=== PATIENT | male | born 1960 | race Caucasian/White ===

== ENCOUNTER 2020-08-31 13:22 | Inpatient (IN) | payer OTHER ==
[2020-08-31 14:47] VITALS: BMI 25.2
[2020-08-31] MEDS ORDERED: IBUPROFEN 400 MG TABLET (FP) PO PRN (15:53)
[2020-08-31] MEDS ORDERED: MENTHOL/PHENOL 1 EACH UD MM PRN (15:53)
[2020-08-31] MEDS ORDERED: METHADONE HCL 10 MG TABLET (FOR DETOX USE ONLY) PO ONE (15:53)
[2020-08-31] MEDS ORDERED: ONDANSETRON *ODT* 4 MG TABLET SL PRN (15:53)
[2020-08-31] MEDS ORDERED: cloNIDine HCL 0.1 MG TABLET PO PRN (15:53)
[2020-08-31] MEDS ORDERED: MAGNESIUM HYDROX 2400MG/30ML ORAL SUSPENSION 30 ML CUP PO PRN (15:53)
[2020-08-31] MEDS ORDERED: ACETAMINOPHEN 325 MG TABLET (FP) PO PRN ×2 (15:53)
[2020-08-31] MEDS ORDERED: BISMUTH SUBSALICYLATE 524 MG/30 ML UD PO PRN (15:53)
[2020-08-31] MEDS ORDERED: MAGNESIUM CITRATE 300 ML BOTTLE PO PRN (15:53)
[2020-08-31] MEDS ORDERED: MAG HYDROX/AL HYDROX/SIMETH 30 ML UNIT-DOSE CUP PO PRN (15:53)
[2020-08-31] MEDS: MELATONIN 5 MG TABLETS PO SCH (22:09)
[2020-08-31] MEDS: THIAMINE HCL 100 MG TABLET (FP) PO SCH (22:09)
[2020-08-31] MEDS: METHOCARBAMOL 500 MG TABLET PO PRN (22:10)
[2020-09-01] MEDS ORDERED: ALBUTEROL SO4 2.5/IPRATROPIUM 0.5 INH SOL 3 ML VIAL.NEB. NEB PRN ×3 (00:18→10:32)
[2020-09-01] MEDS: ALBUTEROL SO4 HFA INHALER IH PRN (01:11)
[2020-09-01] MEDS ORDERED: METHADONE HCL 10 MG TABLET (FOR DETOX USE ONLY) ONE (09:04)
[2020-09-01] MEDS ORDERED: METHADONE HCL 5 MG TABLET (FOR DETOX USE ONLY) ONE (09:04)
[2020-09-01 10:00] LABS: HEMOGLOBIN 14.2 GM/dL (11.7-16.9); MCH 30.7 pg (25.7-33.7); MCHC 33.1 g/dl (32.0-35.9); MEAN CELL VOLUME 92.8 fl (80-96); MEAN PLT VOLUME 11.7 fl (7.5-11.1); PLATELET COUNT 197 K/MM3 (134-434); RBC 4.64 M/mm3 (4.00-5.60); RDW 14.2 % (11.9-15.9); WHITE BLOOD COUNT 8.9 K/mm3 (4.0-10.0)
[2020-09-01] MEDS ORDERED: METHADONE (DETOX) 20 MG, METHADONE (DETOX) 5 MG PO ONE (10:00)
[2020-09-01] MEDS: METHOCARBAMOL 500 MG TABLET PO PRN (10:07)
[2020-09-01] MEDS: PRENATAL VITAMINS W/ FOLIC ACID TABLET (FP) PO SCH (10:07)
[2020-09-01] MEDS ORDERED: TAMSULOSIN HCL 0.4 MG CAP PO ONE (10:14)
[2020-09-01 10:17] LABS: ALBUMIN 3.9 g/dl (3.4-5.0); CALCIUM 9.5 mg/dL (8.5-10.1)
[2020-09-01 10:18] LABS: BLOOD UREA NITROGEN 9.5 mg/dL (7-18)
[2020-09-01 10:20] LABS: CREATININE 0.8 mg/dL (0.55-1.3)
[2020-09-01 10:22] LABS: BILIRUBIN,TOTAL 0.4 mg/dL (0.2-1)
[2020-09-01] MEDS: amLODIPine BESYLATE 5 MG TABLET (FP) PO SCH (11:39)
[2020-09-01] MEDS: LISINOPRIL 10 MG TABLET PO SCH (11:39)
[2020-09-01] MEDS: GABAPENTIN 100 MG CAPSULE PO SCH (11:39)
[2020-09-01] MEDS: PARoxetine HCL 20 MG TABLET PO SCH (12:06)
[2020-09-01] MEDS: THIAMINE HCL 100 MG TABLET (FP) PO SCH (22:17)
[2020-09-01] MEDS: MELATONIN 5 MG TABLETS PO SCH (22:17)
[2020-09-01] MEDS: ATORVASTATIN CA 20 MG TABLET (FP) PO SCH (22:17)
[2020-09-01] MEDS: SUVOREXANT 10 MG TABLET PO PRN (22:17)
[2020-09-02] MEDS ORDERED: METHADONE HCL 10 MG TABLET (FOR DETOX USE ONLY) PO ONE (10:00)
[2020-09-02] MEDS: LISINOPRIL 10 MG TABLET PO SCH (10:08)
[2020-09-02] MEDS: PARoxetine HCL 20 MG TABLET PO SCH (10:08)
[2020-09-02] MEDS: TAMSULOSIN HCL 0.4 MG CAP PO SCH (10:08)
[2020-09-02] MEDS: amLODIPine BESYLATE 5 MG TABLET (FP) PO SCH (10:08)
[2020-09-02] MEDS: PRENATAL VITAMINS W/ FOLIC ACID TABLET (FP) PO SCH (10:08)
[2020-09-02] MEDS: GABAPENTIN 100 MG CAPSULE PO SCH (10:08)
[2020-09-02] MEDS ORDERED: LOPERAMIDE HCL 2 MG CAPSULE PO ONE (13:27)
[2020-09-02] MEDS ORDERED: hydrOXYzine PAMOATE 50 MG CAPSULE (FP) PO PRN (13:30)
[2020-09-02] MEDS: THIAMINE HCL 100 MG TABLET (FP) PO SCH (22:01)
[2020-09-02] MEDS: ATORVASTATIN CA 20 MG TABLET (FP) PO SCH (22:01)
[2020-09-02] MEDS: MELATONIN 5 MG TABLETS PO SCH (22:02)
[2020-09-02] MEDS: SUVOREXANT 10 MG TABLET PO PRN (22:04)
[2020-09-03 08:06] LABS: SARS-CoV-2 NAA Not Detected (Not Detected)
[2020-09-03] MEDS ORDERED: METHADONE HCL 10 MG TABLET (FOR DETOX USE ONLY) ONE (08:53)
[2020-09-03] MEDS ORDERED: METHADONE HCL 5 MG TABLET (FOR DETOX USE ONLY) ONE (08:53)
[2020-09-03] MEDS ORDERED: METHADONE (DETOX) 10 MG, METHADONE (DETOX) 5 MG PO ONE (10:00)
[2020-09-03] MEDS: GABAPENTIN 100 MG CAPSULE PO SCH (10:08)
[2020-09-03] MEDS: amLODIPine BESYLATE 5 MG TABLET (FP) PO SCH (10:08)
[2020-09-03] MEDS: PARoxetine HCL 20 MG TABLET PO SCH (10:08)
[2020-09-03] MEDS: PRENATAL VITAMINS W/ FOLIC ACID TABLET (FP) PO SCH (10:08)
[2020-09-03] MEDS: LISINOPRIL 10 MG TABLET PO SCH (10:08)
[2020-09-03] MEDS: TAMSULOSIN HCL 0.4 MG CAP PO SCH (10:09)
[2020-09-03] MEDS ORDERED: SUVOREXANT 15 MG TABLET PO PRN (22:00)
[2020-09-03] MEDS: ATORVASTATIN CA 20 MG TABLET (FP) PO SCH (22:12)
[2020-09-03] MEDS: ALBUTEROL SO4 HFA INHALER IH PRN (22:12)
[2020-09-03] MEDS: THIAMINE HCL 100 MG TABLET (FP) PO SCH (22:12)
[2020-09-03] MEDS: MELATONIN 5 MG TABLETS PO SCH (23:25)
[2020-09-04] MEDS: TAMSULOSIN HCL 0.4 MG CAP PO SCH (07:36)
[2020-09-04] MEDS ORDERED: METHADONE HCL 10 MG TABLET (FOR DETOX USE ONLY) PO ONE (10:00)
[2020-09-04] MEDS: amLODIPine BESYLATE 5 MG TABLET (FP) PO SCH (10:24)
[2020-09-04] MEDS: PARoxetine HCL 20 MG TABLET PO SCH (10:24)
[2020-09-04] MEDS: GABAPENTIN 100 MG CAPSULE PO SCH (10:24)
[2020-09-04] MEDS: PRENATAL VITAMINS W/ FOLIC ACID TABLET (FP) PO SCH (10:24)
[2020-09-04] MEDS: LISINOPRIL 10 MG TABLET PO SCH (10:24)
[2020-09-04] MEDS: THIAMINE HCL 100 MG TABLET (FP) PO SCH (22:15)
[2020-09-04] MEDS: ATORVASTATIN CA 20 MG TABLET (FP) PO SCH (22:15)
[2020-09-04] MEDS: ALBUTEROL SO4 HFA INHALER IH PRN (22:15)
[2020-09-04] MEDS: MELATONIN 5 MG TABLETS PO SCH (22:15)
[2020-09-05] MEDS ORDERED: METHADONE HCL 5 MG TABLET (FOR DETOX USE ONLY) PO ONE (06:00)
[2020-09-05 09:46] VITALS: BP 137/94; PULSE 99; TEMP 97.1
[2020-09-05] MEDS: amLODIPine BESYLATE 5 MG TABLET (FP) PO SCH (10:48)
[2020-09-05] MEDS: TAMSULOSIN HCL 0.4 MG CAP PO SCH (10:48)
[2020-09-05] MEDS: LISINOPRIL 10 MG TABLET PO SCH (10:48)
[2020-09-05] MEDS: PRENATAL VITAMINS W/ FOLIC ACID TABLET (FP) PO SCH (10:48)
[2020-09-05] MEDS: GABAPENTIN 100 MG CAPSULE PO SCH (10:48)
[2020-09-05] MEDS: PARoxetine HCL 20 MG TABLET PO SCH (10:48)
[2020-09-05] MEDS: ALBUTEROL SO4 HFA INHALER IH PRN (10:50)
== END 2020-09-05 11:14 | disposition home or self-care (01) | DRG 773 ==
LOC: EDBD 13:22 → YASAS 13:22 → Y6N 17:02
PROVIDERS: ADMIT Allergy & Immunology; ATTEND Allergy & Immunology
PROC: HZ2ZZZZ Detoxification Services for Substance Abuse Treatment (ICD-10-PCS; principal; 2020-08-31)
DX: F11.23 Opioid dependence with withdrawal (principal); F10.230 Alcohol dependence with withdrawal, uncomplicated; F17.210 Nicotine dependence, cigarettes, uncomplicated; F19.282 Other psychoactive substance dependence with psychoactive substance-induced sleep disorder; F19.24 Other psychoactive substance dependence with psychoactive substance-induced mood disorder; F33.9 Major depressive disorder, recurrent, unspecified; F41.9 Anxiety disorder, unspecified; I25.10 Atherosclerotic heart disease of native coronary artery without angina pectoris; I10 Essential (primary) hypertension; J45.909 Unspecified asthma, uncomplicated; N40.0 Benign prostatic hyperplasia without lower urinary tract symptoms; R73.9 Hyperglycemia, unspecified; Z90.81 Acquired absence of spleen
CPT/HCPCS: 36415; 71046-TC-FY; 80053; 82962; 85027; 86780; 93005; 93010; C9803; J0735; U0003; U0005